=== PATIENT | male | born 1955 | race Caucasian/White ===

== ENCOUNTER 2023-05-18 11:48 | Observation (INO) | payer BC ==
[2023-05-18 12:27] VITALS: BMI 28.3
[2023-05-18 13:20] LABS: BASO % 0.3 % (0-2.0); EOS % 0.9 % (0-4.5); HEMATOCRIT 30.4 % (35.4-49); HEMOGLOBIN 9.9 GM/dL (11.7-16.9); LYMPH % 10.2 % (8-40); MCH 30.4 pg (25.7-33.7); MCHC 32.5 g/dl (32.0-35.9); MEAN CELL VOLUME 93.7 fl (80-96); MEAN PLT VOLUME 8.7 fl (7.5-11.1); MONO % 8.9 % (3.8-10.2); NEUT % 79.7 % (42.8-82.8); PLATELET COUNT 164 10^3/uL (134-434); RBC 3.24 M/mm3 (4.00-5.60); RDW 14.4 % (11.9-15.9); WHITE BLOOD COUNT 8.5 K/mm3 (4.0-10.0)
[2023-05-18 13:45] LABS: POTASSIUM 4.3 mmol/L (3.5-5.1)
[2023-05-18 13:47] LABS: CALCIUM 8.1 mg/dL (8.5-10.1)
[2023-05-18 13:48] LABS: ALBUMIN 2.6 g/dl (3.4-5.0)
[2023-05-18 13:51] LABS: CREATININE 0.9 mg/dL (0.55-1.3)
[2023-05-18 13:53] LABS: BILIRUBIN,TOTAL 1.1 mg/dL (0.2-1)
[2023-05-18 14:04] LABS: INR 1.14 (0.83-1.09); PROTHROMBIN TIME (PATIENT) 13.2 SEC (9.7-13.0)
[2023-05-18 14:07] LABS: ACTIVATED PTT 23.8 SECONDS (25.2-36.5)
[2023-05-18 15:04] LABS: URINE APPEARANCE CLEAR; URINE BILIRUBIN NEGATIVE (NEGATIVE); URINE COLOR YELLOW; URINE GLUCOSE (UA) NEGATIVE (NEGATIVE); URINE KETONE NEGATIVE (NEGATIVE); URINE LEUK ESTERASE NEGATIVE (NEGATIVE); URINE NITRITE NEGATIVE (NEGATIVE); URINE PROTEIN TRACE (NEGATIVE)
[2023-05-18] MEDS ORDERED: SODIUM CHLORIDE 0.9% 1000 ML INFUS.BAG IV ONE (18:31)
[2023-05-18] MEDS: ASPIRIN COATED 81 MG TABLET.EC PO SCH (21:53)
[2023-05-18] MEDS: CLOPIDOGREL BISULFATE 75 MG TABLET (FP) PO SCH (21:53)
[2023-05-18] MEDS: METOPROLOL TARTRATE 25 MG TABLET (FP) PO SCH (21:53)
[2023-05-19] MEDS ORDERED: FAMOTIDINE 20 MG TABLET PO PRN (00:54)
[2023-05-19 07:16] LABS: BASO % 0.3 % (0-2.0); EOS % 2.4 % (0-4.5); HEMATOCRIT 30.1 % (35.4-49); HEMOGLOBIN 10.2 GM/dL (11.7-16.9); LYMPH % 21.3 % (8-40); MCH 30.8 pg (25.7-33.7); MCHC 33.7 g/dl (32.0-35.9); MEAN CELL VOLUME 91.5 fl (80-96); MEAN PLT VOLUME 8.8 fl (7.5-11.1); MONO % 10.2 % (3.8-10.2); NEUT % 65.8 % (42.8-82.8); PLATELET COUNT 215 10^3/uL (134-434); RBC 3.29 M/mm3 (4.00-5.60); RDW 14.6 % (11.9-15.9); WHITE BLOOD COUNT 8.2 K/mm3 (4.0-10.0)
[2023-05-19 07:20] LABS: POTASSIUM 3.7 mmol/L (3.5-5.1)
[2023-05-19 07:26] LABS: ALBUMIN 2.8 g/dl (3.4-5.0); BLOOD UREA NITROGEN 20.8 mg/dL (7-18); CALCIUM 8.4 mg/dL (8.5-10.1)
[2023-05-19 07:27] LABS: MAGNESIUM 2.1 mg/dL (1.8-2.4)
[2023-05-19 07:29] LABS: CREATININE 0.9 mg/dL (0.55-1.3); PHOSPHOROUS 2.9 mg/dL (2.5-4.9)
[2023-05-19 07:30] LABS: BILIRUBIN,TOTAL 1.4 mg/dL (0.2-1); TOT PROT 6.5 g/dl (6.4-8.2)
[2023-05-19] MEDS: ASPIRIN COATED 81 MG TABLET.EC PO SCH (09:52)
[2023-05-19] MEDS: CLOPIDOGREL BISULFATE 75 MG TABLET (FP) PO SCH (09:52)
[2023-05-19] MEDS: METOPROLOL TARTRATE 25 MG TABLET (FP) PO SCH (09:52)
[2023-05-19] MEDS ORDERED: ROSUVASTATIN CA 20 MG TABLET PO SCH (10:00)
[2023-05-19] MEDS ORDERED: LOSARTAN POTASSIUM 25 MG TABLET PO SCH (10:00)
[2023-05-19] MEDS ORDERED: ISOSORBIDE MONONITRATE 30 MG TAB.SR.24H (FP) PO SCH (10:00)
[2023-05-19] MEDS ORDERED: LACTATED RINGERS SOLUTION 1,000 ML/1,000 ML INFUS.BAG IV SCH (12:15)
[2023-05-19 13:02] VITALS: RESP 18
[2023-05-19 16:04] VITALS: BP 132/72; PULSE 73; TEMP 97
== END 2023-05-19 16:05 | disposition home or self-care (01) ==
LOC: JER 11:48 → JERBED 18:33 → INTOOBSV 20:15 → OBSVTOIN 20:15
PROVIDERS: ADMIT Internal Medicine; ATTEND Internal Medicine
PROC: 3E0337Z Introduction of Electrolytic and Water Balance Substance into Peripheral Vein, Percutaneous Approach (ICD-10-PCS; principal; 2023-05-18)
DX: R55 Syncope and collapse (principal); Z98.890 Other specified postprocedural states; I11.0 Hypertensive heart disease with heart failure; Z95.1 Presence of aortocoronary bypass graft; E78.5 Hyperlipidemia, unspecified; Z96.653 Presence of artificial knee joint, bilateral; Z88.8 Allergy status to other drugs, medicaments and biological substances; I25.10 Atherosclerotic heart disease of native coronary artery without angina pectoris
CPT/HCPCS: 36415; 71045-TC-FY; 80053; 81003; 82962; 83735; 84100; 84484; 85025; 85610; 85730; 87086; 93005; 93010; 93970-TC; 96360; 96361; 99285-25; G0378